=== PATIENT | male | born 1940 | race Caucasian/White ===

== ENCOUNTER 2017-04-10 15:42 | Emergency (ER) | payer MEDICARE ==
[~2017-04-10] VITALS: Ht 175.3 cm; Wt 77.6 kg
[~2017-04-10 15:42] MED LIST: ADULT LOW DOSE81 MG PO; ALPRAZOLAM ER1 MG PO; AMLODIPINE-BEN1 EAC3 PO; COUMADIN 5 MG TA5 M1 PO; FISH OIL 1,0001 EAC8 PO; FISHOIL PO; FOLIC ACID1 MG PO; KEFLEX250 M1 PO; KEFLEX500 M1 PO; MINOCYCLINE HC100 M2 PO; MOBIC15 MG PO; OMEPRAZOLE; PERCOCET 5-3251 EACH PO; PREDNISONE 20 M20 MG PO; PRILOSEC 20 MG20 MG PO; VICOPROFEN 2001 EAC1 PO; VITAMIN D1000 UNI1 PO; VOLTAREN GEL 1100 G1; ZETIA10 MG PO
[2017-04-10] MEDS ORDERED: ASPIR 8181 MG PO (15:51)
[2017-04-10] MEDS ORDERED: LISINOPRIL10 MG PO (15:51)
[2017-04-10] MEDS ORDERED: TRAMADOL 50 MG50 MG PO (17:04)
[2017-04-10] MEDS ORDERED: KEFLEX500 M1 PO (17:04)
[2017-04-10 17:20] VITALS: BP 114/75
== END 2017-04-10 17:21 | disposition home or self-care (01) ==
LOC: M.ERS 15:42
DX: S61.213A Laceration without foreign body of left middle finger without damage to nail, initial encounter (principal); K21.9 Gastro-esophageal reflux disease without esophagitis; I10 Essential (primary) hypertension; G89.29 Other chronic pain; M54.5 Low back pain; L11.1 Transient acantholytic dermatosis [Grover]; G25.81 Restless legs syndrome; Z88.5 Allergy status to narcotic agent; Z77.22 Contact with and (suspected) exposure to environmental tobacco smoke (acute) (chronic); W29.8XXA Contact with other powered hand tools and household machinery, initial encounter; Y93.89 Activity, other specified; Y92.89 Other specified places as the place of occurrence of the external cause; Y99.8 Other external cause status

== ENCOUNTER → 2018-09-05 | Outpatient (CLI) | payer MEDICARE ==
[~2018-09-05] MED LIST changes: +ASPIR 8181 MG PO; +LISINOPRIL10 MG PO; +TRAMADOL 50 MG50 MG PO
== END ==
LOC: M.MRI 17:03
DX: S39.013A Strain of muscle, fascia and tendon of pelvis, initial encounter (principal); R60.0 Localized edema; M26.07 Excessive tuberosity of jaw; M70.62 Trochanteric bursitis, left hip; X58.XXXA Exposure to other specified factors, initial encounter; Y93.89 Activity, other specified; Y92.89 Other specified places as the place of occurrence of the external cause; Y99.8 Other external cause status

== ENCOUNTER 2019-10-22 18:26 | Emergency (ER) | payer MEDICARE ==
[~2019-10-22] VITALS: Ht 175.3 cm; Wt 73.5 kg
[2019-10-22 19:12] LABS: ABSOLUTE EOSINOPHILS 0.2 thou/uL (0.0-0.7); ABSOLUTE LYMPHOCYTES 1.1 thou/uL (0.8-5.3); ABSOLUTE MONOCYTES 0.5 thou/uL (0.0-1.2); ABSOLUTE NEUTROPHILS 2.7 thou/uL (1.6-8.1); BASOPHILS 0.9 %; EOSINOPHILS 3.7 %; HEMATOCRIT 41.7 % (42.0-52.0); HEMOGLOBIN 14.2 gm/dL (14.0-18.0); LYMPHOCYTES 24.5 %; MCHC 34.1 g/dL (28.0-37.0); MCV 90.8 fL (80.0-100.0); MONOCYTES 10.2 %; MPV 7.9 fl. (7.2-11.1); NUCLEATED RBCS 0 /100WBC; PLATELET COUNT* 181 thou/uL (150-400); POLYS 60.7 %; RBC 4.59 mil/uL (4.50-6.00); RDW-CV 13.4 % (10.5-14.5); WBC 4.5 thou/uL (4.0-11.0)
[2019-10-22 19:20] LABS: APTT 26.8 Seconds (25.0-31.3); INR 1.1; PROTIME 11.3 Seconds (9.20-11.50)
[2019-10-22 19:58] VITALS: BP 154/70
== END 2019-10-22 19:58 | disposition home or self-care (01) ==
LOC: M.ERS 18:26
PROVIDERS: Nurse Practitioner Family
DX: L76.21 Postprocedural hemorrhage of skin and subcutaneous tissue following a dermatologic procedure (principal); I10 Essential (primary) hypertension; K21.9 Gastro-esophageal reflux disease without esophagitis; G89.29 Other chronic pain; G25.81 Restless legs syndrome; Z77.22 Contact with and (suspected) exposure to environmental tobacco smoke (acute) (chronic); Z88.6 Allergy status to analgesic agent

== ENCOUNTER 2020-05-19 12:53 | Emergency (ER) | payer MEDICARE ==
[~2020-05-19] VITALS: Ht 175.3 cm; Wt 76.2 kg
[2020-05-19 13:00] VITALS: BP 121/67
[2020-05-19 13:31] LABS: CALCIUM 9.6 mg/dL (8.5-10.1); CREATININE 1.4 mg/dL (0.6-1.3); POTASSIUM 4.1 mmol/L (3.5-5.1)
[2020-05-19 13:33] LABS: URIC ACID* 6.6 mg/dL (2.6-7.2)
[2020-05-19] MEDS ORDERED: MEDROLDOSEPACK PO (14:09)
[2020-05-19] MEDS ORDERED: ULTRAM50 MG PO (14:09)
== END 2020-05-19 14:16 | disposition home or self-care (01) ==
LOC: M.ERS 12:53
PROVIDERS: Emergency Medicine Emergency Medical Services
DX: M25.532 Pain in left wrist (principal); K21.9 Gastro-esophageal reflux disease without esophagitis; G89.29 Other chronic pain; G25.81 Restless legs syndrome; Z87.01 Personal history of pneumonia (recurrent); Z77.22 Contact with and (suspected) exposure to environmental tobacco smoke (acute) (chronic); Z88.5 Allergy status to narcotic agent

== ENCOUNTER 2020-05-26 20:04 | Emergency (ER) | payer MEDICARE ==
[~2020-05-26] VITALS: Ht 175.3 cm; Wt 76.2 kg
[~2020-05-26 20:04] MED LIST changes: +MEDROLDOSEPACK PO; +ULTRAM50 MG PO
[2020-05-26] MEDS ORDERED: TRAMADOL 50 MG50 MG PO (21:50)
[2020-05-26] MEDS ORDERED: KEFLEX500 M1 PO (21:50)
[2020-05-26 21:58] VITALS: BP 146/66
== END 2020-05-26 21:58 | disposition home or self-care (01) ==
LOC: M.ERS 20:04
DX: S62.631B Displaced fracture of distal phalanx of left index finger, initial encounter for open fracture (principal); S61.211A Laceration without foreign body of left index finger without damage to nail, initial encounter; K21.9 Gastro-esophageal reflux disease without esophagitis; I10 Essential (primary) hypertension; G89.29 Other chronic pain; G25.81 Restless legs syndrome; Z88.5 Allergy status to narcotic agent; Z77.22 Contact with and (suspected) exposure to environmental tobacco smoke (acute) (chronic); W26.8XXA Contact with other sharp object(s), not elsewhere classified, initial encounter; Y93.89 Activity, other specified; Y92.89 Other specified places as the place of occurrence of the external cause; Y99.8 Other external cause status

== ENCOUNTER → 2020-06-09 | Outpatient (CLI) | payer MEDICARE | LOC: M.MRI 12:59 | PROVIDERS: ATTEND Orthopaedic Surgery | DX: M75.121 Complete rotator cuff tear or rupture of right shoulder, not specified as traumatic (principal) ==

== ENCOUNTER 2020-09-25 13:15 | Emergency (ER) | payer MEDICARE ==
[~2020-09-25] VITALS: Ht 177.8 cm; Wt 81.7 kg
[2020-09-25] MEDS ORDERED: CEPHALEXIN500 MG PO (15:15)
[2020-09-25 15:29] VITALS: BP 157/74
== END 2020-09-25 15:31 | disposition home or self-care (01) ==
LOC: M.ERS 13:15
DX: S61.012A Laceration without foreign body of left thumb without damage to nail, initial encounter (principal); K21.9 Gastro-esophageal reflux disease without esophagitis; I10 Essential (primary) hypertension; G89.29 Other chronic pain; M10.9 Gout, unspecified; Z88.5 Allergy status to narcotic agent; W26.8XXA Contact with other sharp object(s), not elsewhere classified, initial encounter; Y93.89 Activity, other specified; Y92.89 Other specified places as the place of occurrence of the external cause; Y99.8 Other external cause status